=== PATIENT | female | born 1970 | race Caucasian/White ===

== ENCOUNTER → 2016-11-26 | Outpatient (CLI) | payer OTHER | LOC: BMCIMAGING 10:34 | PROVIDERS: ATTEND Internal Medicine | DX: N63 Unspecified lump in breast (principal) | CPT/HCPCS: G0204 ==

== ENCOUNTER 2017-02-13 20:40 | Emergency (ER) | payer OTHER ==
[2017-02-13 20:56] VITALS: BP 113/79; PULSE 70; RESP 16; TEMP 98.6; O2SAT 97
[2017-02-13 21:10] LABS: COLOR YELLOW; LEUKOCYTE ESTERASE,URINE 1+ (NEGATIVE); NITRITE,URINE POSITIVE (NEGATIVE); PH,URINE 5.5 (5.0-7.5)
[2017-02-13 21:22] LABS: MUCUS 2+ /lpf (NONE-1+); RBC,URINE 50-182 /hpf (0-3); WBC,URINE 25-50 /hpf (0-3)
[2017-02-13 21:23] LABS: BACTERIA 3+ /hpf (NONE SEEN)
[2017-02-13] MEDS ORDERED: NITROFURANTOIN 100MG PREPACK#2 BTL TAKEHOME ONE (21:25)
--- NOTE | 2017-02-13 21:25 | EDPHY ---
H & P Time Seen by Provider: 02/13/17 20:43 HPI/ROS: 46-year-old female presents complaining of urinary frequency, painful urination. Review of systems General no fever no chills no weakness HEENT no eye pain no eye discharge. No eye redness, no sore throat Respiratory no cough, no shortness of breath Cardiac no chest pain, no peripheral edema GI no abdominal pain, no diarrhea, no constipation, no nausea, no vomiting no flank pain, no hematuria, positive dysuria Musculoskeletal no myalgias, no joint pain Heme no easy bruising, no easy bleeding Endo no polyuria, no polydipsia Skin no rashes, no pruritus Neuro no syncope, no dizziness, no headaches Psych is no suicidal ideation, no homicidal ideation Past Medical/Surgical History: Hypothyroidism Social History: Works in a nursing field Is originally from [facility] Smoking Status: Never smoked Physical Exam: 46 yo F alert and oriented in nad non toxic appearance , afebrile Female alert and oriented in no acute distress nontoxic appearance, afebrile Atraumatic normocephalic Neck supple Lungs clear to auscultation bilaterally Heart regular rate and rhythm Abdomen normoactive bowel sounds soft mild suprapubic tenderness no guarding no rebound Back no CVA tenderness Extremities no cyanosis clubbing or edema Skin no rash Constitutional: Initial Vital Signs Temperature (C) 37.0 C 02/13/17 20:49 Heart Rate 70 02/13/17 20:49 Respiratory Rate 16 02/13/17 20:49 Blood Pressure 113/79 02/13/17 20:49 O2 Sat (%) 97 02/13/17 20:49 O2 Delivery Mode Room Air Allergies/Adverse Reactions: cephalexin monohydrate [From Keflex] Allergy (Intermediate, Verified 02/13/17 20 :49) ciprofloxacin [From Cipro] Allergy (Intermediate, Verified 02/13/17 20:49) ciprofloxacin HCl [From Cipro] Allergy (Intermediate, Verified 02/13/17 20:49) Sulfa (Sulfonamide Antibiotics) [Sulfa(Sulfonamide Antibiotics)] Allergy ( Intermediate, Verified 02/13/17 20:49) Home Medications: Medication Instructions Recorded Synthroid 08/04/14 Nitrofurantoin Monohyd/M-Cryst 100 mg PO BID #14 capsule 02/13/17 [Macrobid 100 mg Capsule] Phenazopyridine HCl 200 mg PO TID #6 tab 02/13/17 [Phenazopyridine] Medical Decision Making ED Course/Re-evaluation: Patient seen for symptoms of dysuria Differential diagnosis considered Urinary tract infection, vaginitis, pyelonephritis UA Positive leuk Estrace positive nitrite positive WBCs positive bacteria Impression UTI Plan Phenazopyridine Macrobid Urine culture sent Follow-up PCP - Data Points Laboratory Results: 02/13/17 21:02 Urine Color YELLOW Urine Appearance CLOUDY Urine pH 5.5 (5.0-7.5) Ur Specific [place] >= 1.030 (1.002-1.030) Urine Protein 2+ H (NEGATIVE) Urine Ketones NEGATIVE (NEGATIVE) Urine Blood 3+ H (NEGATIVE) Urine Nitrate POSITIVE H (NEGATIVE) Urine Bilirubin NEGATIVE (NEGATIVE) Urine Urobilinogen 0.2 EU EU (0.2-1.0) Ur Leukocyte Esterase 1+ H (NEGATIVE) Urine RBC 50-182 /hpf H /hpf (0-3) Urine WBC 25-50 /hpf H /hpf (0-3) Ur Epithelial Cells 1+ /lpf /lpf (NONE-1+) Urine Bacteria 3+ /hpf H /hpf (NONE SEEN) Urine Mucus 2+ /lpf H /lpf (NONE-1+) Urine Glucose NEGATIVE (NEGATIVE) Medications Given: Discontinued Medications Nitrofurantoin (Macrobid 100mg Prepack#2) 1 btl TAKEHOME EDNOW ONE PRN Reason: Protocol Stop: 02/13/17 21:26 Last Admin: 02/13/17 21:32 Dose: 1 btl Phenazopyridine HCl (Pyridium) 200 mg PO EDNOW ONE Stop: 02/13/17 21:27 Last Admin: 02/13/17 21:33 Dose: 200 mg Departure - Departure Disposition: Home, Routine, Self-Care Clinical Impression: UTI (urinary tract infection) Condition: Good Instructions: Phenazopyridine (By mouth), Urinary Tract Infection in Women (ED) Referrals: Janey Nash MD [Primary Care Provider] - As per Instructions Prescriptions: Nitrofurantoin Monohyd/M-Cryst [Macrobid 100 mg Capsule] 100 mg PO BID #14 capsule Phenazopyridine HCl [Phenazopyridine] 200 mg PO TID #6 tab
[2017-02-13] MEDS ORDERED: PHENAZOPYRIDINE HCL 200 MG TAB PO ONE (21:26)
== END 2017-02-13 21:33 | disposition home or self-care (01) ==
LOC: CED 20:40
DX: N39.0 Urinary tract infection, site not specified (principal); B96.89 Other specified bacterial agents as the cause of diseases classified elsewhere
CPT/HCPCS: 81003-PO; 81015-PO

== ENCOUNTER → 2017-10-13 | Outpatient (CLI) | payer OTHER | LOC: BMCIMAGING 12:39 | PROVIDERS: ATTEND Internal Medicine | DX: Z12.31 Encounter for screening mammogram for malignant neoplasm of breast (principal) ==

== ENCOUNTER → 2018-06-17 | Outpatient (CLI) | payer OTHER | LOC: BMCIMAGING 10:31 | PROVIDERS: ATTEND Internal Medicine | DX: M77.31 Calcaneal spur, right foot (principal); M85.871 Other specified disorders of bone density and structure, right ankle and foot ==

== ENCOUNTER → 2018-10-04 | Outpatient (CLI) | payer OTHER | LOC: BMCIMAGING 10:11 | PROVIDERS: ATTEND Internal Medicine | DX: S32.19XA Other fracture of sacrum, initial encounter for closed fracture (principal) ==

== ENCOUNTER → 2018-10-25 | Outpatient (CLI) | payer OTHER | LOC: BMCIMAGING 09:16 | PROVIDERS: ATTEND Internal Medicine | DX: Z12.31 Encounter for screening mammogram for malignant neoplasm of breast (principal); Z13.820 Encounter for screening for osteoporosis; Z95.1 Presence of aortocoronary bypass graft ==